=== PATIENT | male | born 1985 | race African-American/Black ===

== ENCOUNTER 2016-05-11 22:35 | Inpatient (IN) | payer MEDICARE, OTHER, MEDICAID ==
[~2016-05-11] VITALS: Ht 185.4 cm; Wt 68.9 kg
[2016-05-11] MEDS ORDERED: HALOPERIDOL 5 MG TAB PO PRN (22:40)
[2016-05-11] MEDS ORDERED: DIPHENHYDRAMINE 50 MG CAP PO PRN (22:40)
[2016-05-11] MEDS ORDERED: TRAZODONE 50 MG TAB PO PRN (22:40)
[2016-05-11] MEDS ORDERED: LORAZEPAM 2 MG TAB PO PRN (22:40)
[2016-05-11] MEDS ORDERED: HALOPERIDOL 5 MG/ML VIAL IM PRN (22:40)
[2016-05-11] MEDS ORDERED: ACETAMINOPHEN 325 MG TAB PO PRN (22:40)
[2016-05-11] MEDS ORDERED: MAG HYDROX 30 ML UDC PO PRN (22:40)
[2016-05-11] MEDS ORDERED: LORAZEPAM 2 MG/ML VIAL IM PRN (22:40)
[2016-05-11] MEDS ORDERED: ALU/MAG/SIM 30 ML UDC PO PRN (22:40)
[2016-05-11] MEDS ORDERED: DIPHENHYDRAMINE 50 MG/ML VIAL IM PRN (22:40)
[2016-05-11 23:10] VITALS: BP_SYST 129; RESP 18; TEMP 97.5; Ht 185.4 cm; Wt 68.9 kg
[2016-05-12] MEDS ORDERED: NICOTINE 21 MG/24 HR TRANSDERM SCH (09:00)
[2016-05-12 09:19] VITALS: BP_SYST 120; RESP 18; TEMP 98.4
[2016-05-12 13:53] VITALS: BP_SYST 120; RESP 18; TEMP 98.4
== END 2016-05-12 14:35 | DRG 885 ==
LOC: PSY 22:48
PROVIDERS: ADMIT Psychiatry & Neurology Psychiatry; ATTEND Psychiatry & Neurology Psychiatry
DX: F20.9 Schizophrenia, unspecified (principal); F17.210 Nicotine dependence, cigarettes, uncomplicated
CPT/HCPCS: 80307; 81003